=== PATIENT | female | born 1935 | race Caucasian/White ===

== ENCOUNTER → 2018-10-23 14:37 | Outpatient (CLI) | payer MEDICARE, SELFPAY | PROVIDERS: Family Provider Nurse Practitioner; PCP Nurse Practitioner; Visit Provider Physician Assistant | DX: L98.9 Disorder of the skin and subcutaneous tissue, unspecified (principal) | CPT/HCPCS: 87070; 87075; 87205 ==

== ENCOUNTER → 2020-09-15 12:11 | Outpatient (CLI) | payer OTHER, SELFPAY ==
[2020-09-15 15:06] LABS: BUN Creatinine Ratio 16.3 (6-22); Blood Urea Nitrogen 13 mg/dL (7-17); Calcium 9.4 mg/dL (8.4-10.2); Carbon Dioxide 31 mmol/L (22-32); Chloride 103 mmol/L (98-107); Estimated Glomerular Filt Rate > 60.0 mL/min (>60); Glucose 103 mg/dL (80-110); HEMOLYSIS < 15 (0-50); Potassium 3.9 mmol/L (3.4-5.1); Sodium 139 mmol/L (137-145)
[2020-09-15 15:19] LABS: Creatinine Urine Random 26.6 mg/dL
[2020-09-15 15:32] LABS: Hemoglobin A1C% w Est Avg Glu 5.5 % (4.0-6.0)
[2020-09-15 20:01] LABS: Microalbumi Creatinin Ratio Ur 37.5 ug/mg CR (<30)
== END ==
PROVIDERS: Family Provider Nurse Practitioner; PCP Nurse Practitioner; Referring Provider Nurse Practitioner; Visit Provider Nurse Practitioner
DX: E11.29 Type 2 diabetes mellitus with other diabetic kidney complication (principal)
CPT/HCPCS: 36415; 80048; 82043; 82570; 83036

== ENCOUNTER → 2021-03-18 11:23 | Outpatient (CLI) | payer OTHER, SELFPAY ==
[2021-03-18 12:34] LABS: Alanine Aminotransferase 25 IU/L (<35); Albumin 4.5 g/dL (3.5-5.0); Albumin Globulin Ratio 1.7 (1.0-2.8); Alkaline Phosphatase 65 U/L (38-126); Aspartate Aminotransferase 27 IU/L (14-36); BUN Creatinine Ratio 16.7 (6-22); Bilirubin Total 0.6 mg/dL (0.2-1.3); Blood Urea Nitrogen 12 mg/dL (7-17); Calcium 9.7 mg/dL (8.4-10.2); Carbon Dioxide 31 mmol/L (22-32); Chloride 101 mmol/L (98-107); Cholesterol 176 mg/dL (140-199); Estimated Glomerular Filt Rate > 60.0 mL/min (>60); Globulin 2.7 g/dL (1.7-4.1); Glucose 116 mg/dL (80-110); HDL Cholesterol 84 mg/dL (40-60); HEMOLYSIS < 15 (0-50); LDL Cholesterol Calculated 64 mg/dL (<100); Potassium 3.9 mmol/L (3.4-5.1); Sodium 139 mmol/L (137-145); Total Protein 7.2 g/dL (6.3-8.2); Triglycerides 142 mg/dL (35-150)
[2021-03-18 12:38] LABS: Hemoglobin A1C% w Est Avg Glu 5.2 % (4.0-6.0)
== END ==
PROVIDERS: Family Provider Nurse Practitioner; PCP Nurse Practitioner; Referring Provider Nurse Practitioner; Visit Provider Nurse Practitioner
DX: E11.29 Type 2 diabetes mellitus with other diabetic kidney complication (principal); R80.9 Proteinuria, unspecified; E78.2 Mixed hyperlipidemia
CPT/HCPCS: 36415; 80053; 80061; 83036

== ENCOUNTER → 2021-09-10 13:53 | Outpatient (CLI) | payer OTHER, SELFPAY ==
[2021-09-10 14:35] LABS: Blood Urea Nitrogen 16 mg/dL (7-17); Calcium 9.5 mg/dL (8.4-10.2); Carbon Dioxide 28 mmol/L (22-32); Chloride 101 mmol/L (98-107); Estimated Glomerular Filt Rate > 60.0 mL/min (>60); Glucose 110 mg/dL (80-110); HEMOLYSIS < 15 (0-50); Hemoglobin A1C% w Est Avg Glu 5.2 % (4.0-6.0); Potassium 4.1 mmol/L (3.4-5.1); Sodium 140 mmol/L (137-145)
== END ==
PROVIDERS: Family Provider Nurse Practitioner; PCP Nurse Practitioner; Referring Provider Nurse Practitioner; Visit Provider Nurse Practitioner
DX: E11.29 Type 2 diabetes mellitus with other diabetic kidney complication (principal); R80.9 Proteinuria, unspecified
CPT/HCPCS: 36415; 80048; 83036

== ENCOUNTER 2022-01-15 13:53 | Emergency (ER) | payer OTHER, SELFPAY ==
[2022-01-15 14:06] VITALS: BP 111/56; PULSE 75; RESP 16; TEMP 36.9; BMI 19.5
--- NOTE | 2022-01-15 14:10 | DI.RAD.S_ITS ---
PROCEDURE: XR RIBS RT MIN 3V W CXR 1V INDICATIONS: fall, hit R ribs on railing TECHNIQUE: 2 views of the right ribs were acquired, along with a single view chest. COMPARISON: None. FINDINGS: Surgical changes and devices: None. Bones and chest wall: Acute, displaced posterior right 6, 7th, and 8th rib fractures.. No suspicious bony lesions. Overlying soft tissues appear unremarkable. Lungs and pleura: No pneumothorax. Small right pleural effusion. Lungs appear clear. Mediastinum: Mediastinal contours appear normal. Heart size is normal. IMPRESSION: Acute, displaced posterior right 6th, 7th, and 8th rib fractures. No pneumothorax. Very small right pleural effusion. Dictated by: Minh Sandoval M.D. on 01/15/2022 at 15:00 Approved by: Minh Sandoval M.D. on 01/15/2022 at 15:01
--- NOTE | 2022-01-15 15:39 | ED.FALL ---
HPI - Fall General Chief Complaint: Fall Stated Complaint: Cracked Ribs Time Seen by Provider: 01/15/22 15:34 Source: patient and family (spouse) Mode of arrival: Ambulatory Limitations: no limitations History of Present Illness HPI Narrative: This is an 86-year-old female comes emergency department complaint of right rib pain. Patient states she fell 3 days ago she tried to catch herself on her banister. She has since had pain on the right side particularly with deep inhalation, movement, cough or sneeze or putting pressure on that side. Patient has tried Tylenol at home with minimal improvement. She has an appreciate any swelling or skin changes. She denies bruising. She does not take any anticoagulants except for aspirin. She states she takes medicine for hypertension, dyslipidemia. She denies prior major surgeries. No known drug allergies. She is a former smoker. She lives independently with her . She states she has been sleeping in a recliner which is helps with the pain. She denies hitting her head or any loss of conscious distance. No other neck or back pain. No numbness tingling or weakness. She has had a cough which sometimes results and episode of posttussive emesis. She denies shortness of breath. She denies diarrhea or constipation. No urinary symptoms. Related Data Home Medications Medication Instructions Recorded Confirmed amlodipine 2.5 mg tablet 2.5 mg PO DAILY 10/23/18 10/23/18 aspirin 81 mg tablet,delayed 81 mg PO DAILY 10/23/18 10/23/18 release (Adult Aspirin Regimen) atorvastatin 80 mg tablet 80 mg PO DAILY 10/23/18 10/23/18 cholecalciferol (vitamin D3) 125 5,000 unit PO DAILY 10/23/18 10/23/18 mcg (5,000 unit) capsule clobetasol 0.05 % topical cream 1 applictn TOP BID 10/23/18 10/23/18 furosemide 20 mg tablet 20 mg PO DAILY 10/23/18 10/23/18 gabapentin 300 mg capsule 300 mg PO DAILY 10/23/18 10/23/18 losartan 100 mg tablet 100 mg PO DAILY 10/23/18 10/23/18 metoprolol succinate 100 mg 100 mg PO DAILY 10/23/18 10/23/18 capsule sprinkle, ext. release 24 hr paroxetine HCl 40 mg tablet (Paxil) 40 mg PO DAILY 10/23/18 10/23/18 potassium chloride 20 mEq 20 meq PO DAILY 10/23/18 10/23/18 tablet,extended release(part/cryst) (Klor-Con M) ranitidine HCl 150 mg tablet (Acid 150 mg PO DAILY 10/23/18 10/23/18 Control (ranitidine)) Previous Rx's Medication Instructions Recorded hydrocodone 5 mg-acetaminophen 325 2 tab PO Q6H PRN #20 tab 01/15/22 mg tablet Allergies Allergy/AdvReac Type Severity Reaction Status Date / Time No Known Drug Allergies Allergy Unverified 10/23/18 13:55 Review of Systems Review of Systems ROS Unobtainable: All systems reviewed & are unremarkable except as noted in HPI and below Patient History Social History Smoking Status: Former smoker Smoking Status: Former smoker Exam Narrative Exam Narrative: GEN: well nourished, well appearing female, alert and oriented x 3, patient appears to be in mild distress. Patient sitting up in bedside chair she finds this more comfortable than sitting on the ED gurney. HEENT: Atraumatic, pupils are equal round reactive to light, no facial trauma. HEART: Regular rate and rhythm without murmur, clicks, rubs. Patient has reproducible chest on right lateral chest wall. No ecchymosis. No obvious deformity. No flail chest. No tachypnea accessory muscle use. LUNGS:Lungs clear to auscultation, no wheezes, rales, crackles, chest moves symmetrically, patient speaks in full sentences. ABD:bowel sounds normal, soft, non-tender, no guarding, rebound, rigidity, no masses noted, no hepatosplenomegaly :No CVA tenderness BACK: No cervical, thoracic or lumbar vertebral point tenderness. Patient has normal range of motion. MSCL: Non-tender, no muscle atrophy, muscles strength 5/5 upper and lower extremities, full range of motion, normal gait NEURO:CN 2-12 intact, sensation normal SKIN: No rash, erythema or other skin changes. Initial Vital Signs Initial Vital Signs: Vital Signs Temperature 98.4 F 01/15/22 14:06 Pulse Rate 75 01/15/22 14:06 Respiratory Rate 16 01/15/22 14:06 Blood Pressure 111/56 L 01/15/22 14:06 Scores GCS [place] coma scale eye opening: Spontaneous [place] coma scale verbal response: Orientated [place] coma scale motor response: Obey commands [place] coma scale total score: 15 Course Orders Ordered: ED Orders 01/15/22 14:10 XR ribs RT min 3V w CXR1V Stat Discontinued Medications Hydrocodone Bitart/Acetaminophen (Hydrocodone/Acet 5/325 Tablet) 2 tab PO NOW ONE Stop: 01/15/22 16:02 Last Admin: 01/15/22 16:15 Dose: 2 tab Documented by: LAKSHMI Vital Signs Vital signs: Vital Signs - 8 hr 01/15/22 14:06 01/15/22 16:12 01/15/22 16:16 Temperature 98.4 F Pulse Rate 75 83 Respiratory Rate 16 12 Blood Pressure 111/56 L Pulse Oximetry 99 99 MDM - Fall Imaging Data Chest x-ray: Radiologist's Impression: [address] [address] XRay Report Signed Patient: Dary Fraga MR#: [id number] : 1935 Acct:[id number] Age/Sex: 86 / F Date of Service: 01/15/22 Loc: ED Accession Number: [id number] ?? Procedure: XR ribs RT min 3V w CXR1V Ordering Provider: Birdie De La Vega D.O. PROCEDURE:? XR RIBS RT MIN 3V W CXR 1V ? INDICATIONS:? fall, hit R ribs on railing ? TECHNIQUE:? 2 views of the right ribs were acquired, along with a single view chest.? ? COMPARISON:? None. ? FINDINGS:? ? Surgical changes and devices:? None.? ? Bones and chest wall:? Acute, displaced posterior right 6, 7th, and 8th rib fractures..? No suspicious bony lesions.? Overlying soft tissues appear unremarkable.? ? Lungs and pleura:? No pneumothorax.? Small right pleural effusion.? Lungs appear clear.? ? Mediastinum:? Mediastinal contours appear normal.? Heart size is normal.? ? IMPRESSION:? Acute, displaced posterior right 6th, 7th, and 8th rib fractures.? No pneumothorax.? Very small right pleural effusion. ? ? Dictated by: Minh Sandoval M.D. on 01/15/2022 at 15:00 ? ? Approved by: Minh Sandoval M.D. on 01/15/2022 at 15:01?? MDM Narrative Medical decision making narrative: This is an 86-year-old female with 3 rib fractures and small possible pleural effusion on chest x-ray. Patient had a fall 3 days ago, vitals are appropriate. Discussed with patient that would be appropriate to get CT of the chest for further evaluation and lab work. They defer at this time and she is 3 days out from her initial injury with otherwise reassuring exam. We did discuss that 3 or more rib fractures in an elderly individual can be admission criteria although patient actually looks quite well. She is on aspirin but no other anticoagulants. Plan for pain control, incentive spirometer and patient to return if any worsening symptoms. Discharge Plan Departure Patient Disposition: Home Clinical Impression: Closed rib fracture Qualifiers: Encounter type: initial encounter Rib fracture type: multiple ribs Laterality: right Qualified Code(s): S22.41XA - Multiple fractures of ribs, right side, initial encounter for closed fracture Instructions: DI for Rib Fracture Activity Restrictions/Additional Instructions: You have 3 rib fractures on your imaging. Follow-up with your physician for recheck. If you need continue narcotic pain medication they can help with refills. Use incentive spirometer hourly while awake. This helps to prevent pneumonia which frequently occurs after rib fractures secondary to not inhaling deep enough. You may take Tylenol up to 1000 mg every 8 hours or [place] 1-2 tablets every 6 hours as needed for pain control. This medication can make you sleepy do not drive, perform hazardous activities or make any major decisions while taking it. This medication will make you constipated please take a stool softener once to twice daily until stools are soft and regular. Prescription to [facility] in [place]. Please return for fevers, new or worsening chest pain, shortness of breath, lightheadedness, coughing up blood, persistent vomiting, new bruising or skin changes or other new or concerning symptoms. Prescriptions: New hydrocodone-acetaminophen 5-325 mg tablet 2 tab PO Q6H PRN (Reason: pain) Qty: 20 0RF No Action atorvastatin 80 mg tablet 80 mg PO DAILY 0RF clobetasol 0.05 % cream 1 applictn TOP BID 0RF amlodipine 2.5 mg tablet 2.5 mg PO DAILY 0RF aspirin [Adult Aspirin Regimen] 81 mg tablet,delayed release (DR/EC) 81 mg PO DAILY 0RF potassium chloride [Klor-Con M20] 20 mEq tablet,ER particles/crystals 20 meq PO DAILY 0RF ranitidine HCl [Acid Control (ranitidine)] 150 mg tablet 150 mg PO DAILY 0RF gabapentin 300 mg capsule 300 mg PO DAILY 0RF furosemide 20 mg tablet 20 mg PO DAILY 0RF paroxetine HCl [Paxil] 40 mg tablet 40 mg PO DAILY 0RF losartan 100 mg tablet 100 mg PO DAILY 0RF cholecalciferol (vitamin D3) 5,000 unit capsule 5,000 unit PO DAILY 0RF metoprolol succinate 100 mg cap,sprinkle,ER 24hr dose pack 100 mg PO DAILY 0RF Referrals: Rhonda Mcdonald ARNP [Primary Care Provider] -
[2022-01-15 16:12] VITALS: PULSE 83; RESP 12; O2SAT 99
[2022-01-15] MEDS: HYDROCODONE/ACET 5/325 TABLET 2 TAB PO (16:15)
[2022-01-15 16:16] VITALS: O2SAT 99
--- NOTE | 2022-01-15 16:22 | PC.NURSE ---
Patient educated by RT for Incentive spirometer.
== END 2022-01-15 16:23 | disposition home or self-care (01) ==
PROVIDERS: Emergency Provider Emergency Medicine; Family Provider Nurse Practitioner; PCP Nurse Practitioner
DX: S22.41XA Multiple fractures of ribs, right side, initial encounter for closed fracture (principal); W18.30XA Fall on same level, unspecified, initial encounter
CPT/HCPCS: 71101; 99283

== ENCOUNTER → 2022-02-02 11:41 | Outpatient (CLI) | payer OTHER, SELFPAY ==
--- NOTE | 2022-02-02 11:50 | DI.RAD.S_ITS ---
PROCEDURE: XR RIBS RT MIN 3V W CXR 1V INDICATIONS: closed fracture with healing TECHNIQUE: 3 views of the right ribs were acquired, along with a single view chest. COMPARISON: [facility], CR, XR RIBS RT MIN 3V W CXR 1V, 01/15/2022, 14:28. FINDINGS: Surgical changes and devices: None. Bones and chest wall: As identified on prior exam, right rib fractures are present in the 6th, 7th and 8th ribs. Rib fracture is now identified in the right 5th rib, previously not visible. No suspicious bony lesions. Overlying soft tissues appear unremarkable. Lungs and pleura: No pleural effusions or pneumothorax. Lungs appear clear. No pneumothorax. Mediastinum: Mediastinal contours appear normal. Heart size is normal. IMPRESSION: Multiple right rib fractures as above with new 5th rib fracture currently identified. Dictated by: Nikkie Phelps M.D. on 02/02/2022 at 21:50 Approved by: Nikkie Phelps M.D. on 02/02/2022 at 21:53
== END ==
PROVIDERS: Family Provider Nurse Practitioner; PCP Nurse Practitioner; Referring Provider Nurse Practitioner; Visit Provider Nurse Practitioner
DX: S22.31XA Fracture of one rib, right side, initial encounter for closed fracture (principal); S22.41XD Multiple fractures of ribs, right side, subsequent encounter for fracture with routine healing; X58.XXXA Exposure to other specified factors, initial encounter; X58.XXXD Exposure to other specified factors, subsequent encounter
CPT/HCPCS: 71101

== ENCOUNTER → 2022-02-21 12:04 | Outpatient (CLI) | payer OTHER, SELFPAY ==
[2022-02-21 13:39] LABS: Alanine Aminotransferase 15 IU/L (<35); Albumin 4.4 g/dL (3.5-5.0); Albumin Globulin Ratio 1.6 (1.0-2.8); Alkaline Phosphatase 62 U/L (38-126); Aspartate Aminotransferase 22 IU/L (14-36); BUN Creatinine Ratio 19.7 (6-22); Bilirubin Total 0.7 mg/dL (0.2-1.3); Blood Urea Nitrogen 14 mg/dL (7-17); Calcium 9.3 mg/dL (8.4-10.2); Carbon Dioxide 30 mmol/L (22-32); Chloride 101 mmol/L (98-107); Cholesterol 177 mg/dL (140-199); Estimated Glomerular Filt Rate > 60.0 mL/min (>60); Globulin 2.7 g/dL (1.7-4.1); Glucose 106 mg/dL (80-110); HDL Cholesterol 68 mg/dL (40-60); HEMOLYSIS < 15 (0-50); Hemoglobin A1C% w Est Avg Glu 5.4 % (4.0-6.0); LDL Cholesterol Calculated 78 mg/dL (<100); Sodium 137 mmol/L (137-145); Total Protein 7.1 g/dL (6.3-8.2); Triglycerides 157 mg/dL (35-150)
[2022-02-21 14:24] LABS: Vitamin B12 307 pg/mL (239-931)
[2022-02-22 11:36] LABS: Creatinine Urine Random 58.5 mg/dL
[2022-02-22 11:40] LABS: Microalbumi Creatinin Ratio Ur 22.2 ug/mg CR (<30); Microalbumin Urine Random 1.3 mg/dL (0-1.6)
== END ==
PROVIDERS: Family Provider Nurse Practitioner; PCP Nurse Practitioner; Referring Provider Nurse Practitioner; Visit Provider Nurse Practitioner
DX: E11.29 Type 2 diabetes mellitus with other diabetic kidney complication (principal); R80.9 Proteinuria, unspecified
CPT/HCPCS: 36415; 80053; 80061; 82043; 82570; 82607; 83036

== ENCOUNTER → 2023-06-19 12:29 | Outpatient (CLI) | payer OTHER, SELFPAY ==
[2023-06-19 16:21] LABS: Alanine Aminotransferase 26 IU/L (<35); Albumin 4.2 g/dL (3.5-5.0); Albumin Globulin Ratio 1.3 (1.0-2.8); Alkaline Phosphatase 79 U/L (38-126); Aspartate Aminotransferase 28 IU/L (14-36); BUN Creatinine Ratio 20.2 (6-22); Bilirubin Total 0.6 mg/dL (0.2-1.3); Blood Urea Nitrogen 19 mg/dL (7-17); Calcium 9.2 mg/dL (8.4-10.2); Carbon Dioxide 28 mmol/L (22-32); Chloride 105 mmol/L (98-107); Estimated Glomerular Filt Rate 59 mL/min (>60); Globulin 3.2 g/dL (1.7-4.1); Glucose 119 mg/dL (80-110); HEMOLYSIS < 15 (0-50); Potassium 3.7 mmol/L (3.4-5.1); Sodium 140 mmol/L (137-145); Total Protein 7.4 g/dL (6.3-8.2)
[2023-06-20 05:50] LABS: Labcorp Hemoglobin (Hb) A1c 5.6 % (4.8-5.6)
== END ==
PROVIDERS: Family Provider Nurse Practitioner; PCP Nurse Practitioner; Referring Provider Nurse Practitioner; Visit Provider Nurse Practitioner
DX: E11.22 Type 2 diabetes mellitus with diabetic chronic kidney disease (principal); N18.30 Chronic kidney disease, stage 3 unspecified
CPT/HCPCS: 36415; 80053; 83036

== ENCOUNTER → 2024-04-15 11:15 | Outpatient (CLI) | payer OTHER, SELFPAY ==
[2024-04-15 13:21] LABS: Cholesterol 151 mg/dL (140-199); HDL Cholesterol 70 mg/dL (40-60); LDL Cholesterol Calculated 50 mg/dL (<100); Magnesium 1.5 mg/dL (1.6-2.3); Triglycerides 154 mg/dL (35-150)
== END ==
LOC: LAB 11:18
PROVIDERS: Family Provider Nurse Practitioner; PCP Nurse Practitioner; Referring Provider Nurse Practitioner; Visit Provider Nurse Practitioner
DX: E78.2 Mixed hyperlipidemia (principal); R19.7 Diarrhea, unspecified
CPT/HCPCS: 36415; 80061; 83735

== ENCOUNTER → 2024-12-05 14:08 | Outpatient (CLI) | payer OTHER, SELFPAY ==
[2024-12-05 15:05] LABS: Hematocrit 37.3 % (36-46); Hemoglobin 12.9 g/dL (12.0-16.0); Mean Corpuscular HGB Conc 34.6 % (30-36); Mean Corpuscular Hemoglobin 34.6 PG (26-34); Mean Corpuscular Volume 99.9 fL (80-100); Platelet Count 210 X10^3/uL (150-400); Red Blood Cell Count 3.74 X10^6/uL (4.0-5.2); White Blood Cell Count 6.8 X10^3/uL (4.5-11.0)
[2024-12-05 15:29] LABS: Alanine Aminotransferase 40 IU/L (<35); Albumin 4.1 g/dL (3.5-5.0); Albumin Globulin Ratio 1.4 (1.0-2.8); Alkaline Phosphatase 75 U/L (38-126); Aspartate Aminotransferase 38 IU/L (14-36); Bilirubin Total 0.6 mg/dL (0.2-1.3); Calcium 9.2 mg/dL (8.4-10.2); Carbon Dioxide 31 mmol/L (22-32); Chloride 102 mmol/L (98-107); Cholesterol 143 mg/dL (140-199); Glucose 138 mg/dL (80-110); HDL Cholesterol 70 mg/dL (40-60); LDL Cholesterol Calculated 36 mg/dL (<100); Potassium 2.8 mmol/L (3.4-5.1); Sodium 138 mmol/L (137-145); Total Protein 7.1 g/dL (6.3-8.2); Triglycerides 184 mg/dL (35-150)
[2024-12-05 15:39] LABS: Hemoglobin A1C% w Est Avg Glu 5.2 % (4.0-6.0)
[2024-12-05 16:37] LABS: HEMOLYSIS < 15 (0-50); Vitamin B12 713 pg/mL (239-931)
[2024-12-05 21:31] LABS: BUN Creatinine Ratio 16.3 (6-22); Blood Urea Nitrogen 17 mg/dL (7-17); Estimated Glomerular Filt Rate 52 mL/min (>60)
== END ==
PROVIDERS: Family Provider Nurse Practitioner; PCP Family Medicine; Referring Provider Family Medicine; Visit Provider Family Medicine
DX: N18.30 Chronic kidney disease, stage 3 unspecified (principal); E11.9 Type 2 diabetes mellitus without complications; E78.5 Hyperlipidemia, unspecified; K21.9 Gastro-esophageal reflux disease without esophagitis
CPT/HCPCS: 36415; 80053; 80061; 82607; 83036; 85027

== ENCOUNTER → 2024-12-24 14:23 | Outpatient (CLI) | payer OTHER, SELFPAY ==
[2024-12-24 16:05] LABS: Alanine Aminotransferase 100 IU/L (<35); Albumin 4.5 g/dL (3.5-5.0); Alkaline Phosphatase 90 U/L (38-126); Aspartate Aminotransferase 93 IU/L (14-36); BUN Creatinine Ratio 18.3 (6-22); Bilirubin Total 0.8 mg/dL (0.2-1.3); Blood Urea Nitrogen 17 mg/dL (7-17); Calcium 9.5 mg/dL (8.4-10.2); Carbon Dioxide 29 mmol/L (22-32); Chloride 100 mmol/L (98-107); Estimated Glomerular Filt Rate 59 mL/min (>60); Globulin 2.2 g/dL (1.7-4.1); Glucose 123 mg/dL (80-110); HEMOLYSIS < 15 (0-50); Potassium 3.7 mmol/L (3.4-5.1); Sodium 139 mmol/L (137-145); Total Protein 6.7 g/dL (6.3-8.2)
== END ==
PROVIDERS: Family Provider Nurse Practitioner; PCP Family Medicine; Referring Provider Family Medicine; Visit Provider Family Medicine
DX: R79.89 Other specified abnormal findings of blood chemistry (principal)
CPT/HCPCS: 36415; 80053

== ENCOUNTER → 2025-01-01 09:23 | Outpatient (CLI) | payer OTHER, SELFPAY ==
--- NOTE | 2025-01-01 09:24 | DI.US.S_ITS ---
PROCEDURE: US ABDOMEN LIMITED INDICATIONS: assess for cause of persistently elevated LFTs TECHNIQUE: Real-time focused scanning was performed of the abdomen, with image documentation. COMPARISON: [facility], US, US ABDOMEN COMPLETE, 09/05/2022, 10:50. [facility], CT, CT ABDOMEN PELVIS WITH CONTRAST, 09/26/2022, 11:55. FINDINGS: The liver demonstrates normal size. The liver demonstrates generalized mildly increased echogenicity. This decreases ultrasound sensitivity for detection of hepatic masses. No findings of gallstones or sludge are seen. The gallbladder wall is not thickened, measuring 3 mm or less. No specific pericholecystic fluid is seen. The sonographic Garber sign is negative. There is no biliary dilatation, the common bile duct measures 7 mm. No significant pancreatic abnormality is seen on these images. IMPRESSION: The liver demonstrates mildly increased echogenicity. This finding is nonspecific, yet it is most commonly attributed to fatty infiltration. Normal appearing gallbladder. The common bile duct measures at the upper limits of normal 7 mm. Dictated by: Salvador Patel M.D. on 01/01/2025 at 9:29 Approved by: Salvador Patel M.D. on 01/01/2025 at 9:31
[2025-01-01 10:26] LABS: HEMOLYSIS < 15 (0-50); Iron 97 ug/dL (37-170)
[2025-01-01 10:38] LABS: Percent Iron Saturation 46 % (15-50); Total Iron Binding Capacity 212 ug/dL (265-497); Transferrin 188 mg/dL (206-381)
[2025-01-01 11:03] LABS: Ferritin 322 ng/mL (11-264)
[2025-01-02 02:09] LABS: Hepatitis B Core AB w/Reflex Negative (Negative)
[2025-01-02 16:55] LABS: Hepatitis B Surface Antigen NEGATIVE s/c (NEGATIVE)
== END ==
LOC: US 09:23
PROVIDERS: Family Provider Nurse Practitioner; PCP Family Medicine; Referring Provider Family Medicine; Visit Provider Family Medicine
DX: R79.89 Other specified abnormal findings of blood chemistry (principal)
CPT/HCPCS: 36415; 76705; 82728; 83540; 83550; 86704; 87340; 87522

== ENCOUNTER → 2025-01-23 13:13 | Outpatient (CLI) | payer OTHER, SELFPAY ==
--- NOTE | 2025-01-23 13:14 | DI.US.S_ITS ---
PROCEDURE: US PERIPH VENOUS LOW EXTREM RT INDICATIONS: FOOT EDEMA TECHNIQUE: Real-time imaging, as well as color and pulse Doppler interrogation, were performed of the lower extremity deep veins from the inguinal ligament to the popliteal fossa, with documentation of the visualized calf veins. COMPARISON: None. FINDINGS: The common femoral, femoral, popliteal, and the visualized calf veins are normally compressible, and free of intraluminal thrombus. Color and pulse Doppler demonstrate normal phasic intraluminal flow. There is normal augmentation response to distal compression maneuver. IMPRESSION: No findings of lower extremity deep venous thrombosis. Dictated by: Nikkie Phelps M.D. on 01/23/2025 at 17:05 Approved by: Nikkie Phelps M.D. on 01/23/2025 at 17:05
== END ==
PROVIDERS: Family Provider Nurse Practitioner; PCP Family Medicine; Referring Provider Family Medicine; Visit Provider Family Medicine
DX: M79.89 Other specified soft tissue disorders (principal)
CPT/HCPCS: 93971